=== PATIENT | female | born 1965 | race African-American/Black ===

== ENCOUNTER 2017-02-20 19:54 | Emergency (ER) | payer OTHER ==
[~2017-02-20] VITALS: Ht 165.1 cm; Wt 83.0 kg
--- NOTE | ~2017-02-20 | EKG ---
[address] [email or web address] [address] ELECTROCARDIOGRAM REPORT Name: DESIRAE ESPINOZA V Room #: [facility]#: [id number] Admission: 02/20/17 Attend Phys: Discharge: 02/21/17 Date of : 67 Report #: [id number] THIS REPORT FOR: //name// [facility] ED Test Date: 2017-02-20 Test Time: 21:44:10 Pat Name: DESIRAE ESPINOZA Department: Room: Gender: F Dental Professional: MZOOK : 1965 Requested By: Taj Daily Order Number: [id number] MD: Evelio Dick Measurements Intervals [place] Rate: 72 P: 14 MT: 166 QRS: -32 QRSD: 88 T: 14 QT: 373 QTc: 409 Interpretive Statements Sinus rhythm No significant abnormality No previous ECG available for comparison Electronically Signed On 02-21-2017 8:59:57 CDT by Evelio Dick [email or web address] <ELECTRONICALLY SIGNED> By: Evelio Dick MD, [facility] 02/21/17 [id number] Evelio Dick MD, FACC /EPI
[~2017-02-20 19:54] MED LIST: COLCHICINE0.6 MG PO; HYDROCODONE-AP1 EAC6 PO; IBUPROFEN 800800 M1; INDOMETHACIN 2525 MG PO; MOBIC15 MG PO; PERCOCET 5-3251 EACH PO
[2017-02-20 22:08] LABS: ABSOLUTE NEUTROPHILS 4.7 thou/uL (1.4-8.2); BASOPHILS 0.6 % (0.0-2.0); EOSINOPHILS 1.4 % (0.0-3.0); HEMATOCRIT 37.9 % (37.0-47.0); LYMPHOCYTES 31.1 % (24.0-44.0); MANUAL DIFF NO; MCH 33.6 pg (26.0-34.0); MCHC 34.3 g/dL (28.0-37.0); MCV 97.9 fL (80.0-100.0); MONOCYTES 6.3 % (1.0-8.0); PLATELET COUNT 280 thou/uL (150-400); POLYS 60.6 % (36.0-66.0); RBC 3.87 mil/uL (4.20-5.00); RDW 12.5 % (10.5-14.5); WBC 7.7 thou/uL (4.0-11.0)
[2017-02-20 22:18] LABS: ANION GAP 8 mmol/L (7-16); BUN 6 mg/dL (7-18); CALCIUM 9.1 mg/dL (8.5-10.1); CHLORIDE 104 mmol/L (98-107); CO2 27 mmol/L (21-32); CREATININE 0.8 mg/dL (0.6-1.0); GLUCOSE 108 mg/dL (74-106); POTASSIUM 3.3 mmol/L (3.5-5.1); SODIUM 139 mmol/L (136-145)
[2017-02-20 22:23] LABS: ALBUMIN 3.6 g/dL (3.4-5.0); ALKALINE PHOSPHATASE 84 U/L (46-116); APTT 30.3 Seconds (24.5-32.8); INR 1.1; PROTIME 11.6 Seconds (9.3-11.4); SGOT 14 U/L (15-37); SGPT 33 U/L (30-65); TOTAL BILIRUBIN 0.5 mg/dL (<0.1-1.0); TROPONIN-I < 0.04 ng/mL (<0.04-0.07)
[2017-02-21] MEDS ORDERED: TESSALON PERLE100 MG PO (00:54)
[2017-02-21] MEDS ORDERED: AUGMENTIN 875-1 EACH PO (00:54)
[2017-02-21 00:56] VITALS: BP 115/98
== END 2017-02-21 01:13 | disposition home or self-care (01) ==
LOC: ER 19:54
PROVIDERS: Emergency Medicine
DX: J18.1 Lobar pneumonia, unspecified organism (principal); F10.99 Alcohol use, unspecified with unspecified alcohol-induced disorder; Z88.5 Allergy status to narcotic agent

== ENCOUNTER 2020-02-29 20:19 | Emergency (ER) | payer OTHER ==
[~2020-02-29] VITALS: Ht 154.9 cm; Wt 77.1 kg
[~2020-02-29 20:19] MED LIST changes: +AUGMENTIN 875-1 EACH PO; +TESSALON PERLE100 MG PO
[2020-02-29] MEDS ORDERED: TYLENOL EXTRA500 MG PO (20:37)
[2020-02-29] MEDS ORDERED: FLEXERIL PO (22:23)
[2020-02-29 22:42] VITALS: BP 165/100
== END 2020-02-29 22:45 | disposition home or self-care (01) ==
LOC: ER 20:19
DX: R07.89 Other chest pain (principal); N64.4 Mastodynia; M62.838 Other muscle spasm; F17.210 Nicotine dependence, cigarettes, uncomplicated; Z88.6 Allergy status to analgesic agent; V89.2XXA Person injured in unspecified motor-vehicle accident, traffic, initial encounter; Y93.89 Activity, other specified; Y92.89 Other specified places as the place of occurrence of the external cause; Y99.8 Other external cause status